=== PATIENT | female | born 1940 | race Caucasian/White ===

== ENCOUNTER → 2018-05-04 | Outpatient (CLI) | payer MEDICARE, OTHER ==
[~2018-05-04] MED LIST: ACET325 PO; ALLO300 PO; ASCO500 PO; CALCAVITD PO; CEPH500 PO; CHOL10002; CLOP75 PO; FLAXSEED1000 MG PO; HYDCHL50 PO; IBUP600 PO; KRILL OIL500 MG PO; LOSA50 PO; MAGOXI400; PROBIOTIC; PROM25 PO; SPIR25 PO; TUMERIC PO; UBID100 PO; VERA180ERB PO
== END | disposition home or self-care (01) ==
LOC: LAB SHORT 19:07 → LAB 19:07
PROVIDERS: Family Medicine
DX: Z12.4 Encounter for screening for malignant neoplasm of cervix (principal)
CPT/HCPCS: G0145

== ENCOUNTER → 2019-06-19 | Outpatient (CLI) | payer MEDICARE, OTHER | END | disposition home or self-care (01) | LOC: LAB 19:28 → LAB SHORT 19:28 | PROVIDERS: Family Medicine | DX: Z12.4 Encounter for screening for malignant neoplasm of cervix (principal) | CPT/HCPCS: G0145 ==

== ENCOUNTER → 2019-10-15 | Outpatient (CLI) | payer MEDICARE, OTHER | END | disposition home or self-care (01) | LOC: LAB 13:04 → LAB SHORT 13:04 | DX: N39.0 Urinary tract infection, site not specified (principal) | CPT/HCPCS: 87077; 87086; 87186 ==

== ENCOUNTER 2019-11-20 13:29 | Emergency (ER) | payer MEDICARE, OTHER ==
[~2019-11-20] VITALS: Ht 160 cm; Wt 99.8 kg
[2019-11-20 14:57] LABS: Source, Urine Clean Catch
[2019-11-20 15:01] LABS: Bilirubin, Urine Neg (Neg); Blood, Urine Neg (Neg); Glucose Qualitative, Urine Neg (Neg); Ketones, Urine Neg (Neg); Leukocyte Esterase, Urine 3+ (Neg); Nitrite, Urine Pos (Neg); Protein, Urine Neg (Neg); Urobilinogen, Urine NORM (Normal)
[2019-11-20 15:18] LABS: Appearance, Urine Hazy (Clear); Bacteria Many /hpf; Color, Urine Yellow (P-Yellow); Red Blood Cells, Urine Not Seen /hpf (0-2); Squamous Epithelial Cells Few /hpf (Few)
[2019-11-20 15:34] LABS: BASOPHILS ABSOLUTE AUTO 0.06 K/mm3 (0.00-0.23); BASOPHILS PERCENT AUTO 1 % (0-2); EOSINOPHILS ABSOLUTE AUTO 0.16 K/mm3 (0.00-0.68); EOSINOPHILS PERCENT AUTO 1 % (0-6); Hematocrit 47.3 % (33.0-51.0); Hemoglobin 16.1 g/dL (11.5-16.0); IMMATURE GRAN ABSOLUTE AUTO 0.05 K/mm3 (0.00-0.10); IMMATURE GRAN PERCENT AUTO 0 % (0-1); LYMPHOCYTES ABSOLUTE AUTO 1.22 K/mm3 (0.84-5.20); LYMPHOCYTES PERCENT AUTO 11 % (21-46); MONOCYTES ABSOLUTE AUTO 0.97 K/mm3 (0.16-1.47); MONOCYTES PERCENT AUTO 8 % (4-13); Mean Corpuscular HGB 31.6 pg (26.0-34.0); Mean Corpuscular Volume 93 fL (80-100); Mean Platelet Volume 10.7 fL (9.1-12.4); NEUTROPHILS ABSOLUTE AUTO 9.04 K/mm3 (1.96-9.15); NEUTROPHILS PERCENT AUTO 79 % (41-73); Platelet Count 176 K/mm3 (150-400); RDW Coefficient Variation 13.3 % (11.7-14.2); RDW Standard Deviation 46.1 fL (35.1-46.3); Red Blood Cell Count 5.09 M/mm3 (3.80-5.20)
[2019-11-20 15:54] LABS: Alanine Aminotransfer (ALT/SGP 42 U/L (12-78); Albumin, Blood 3.5 g/dL (3.4-5.0); Albumin/Globulin Ratio 1.1 (0.8-1.8); Alk Phos 112 U/L (50-136); Anion Gap 8 mmol/L (6-16); Aspartate Aminotrans (AST/SGOT 43 U/L (12-37); Bilirubin, Total 1.3 mg/dL (0.1-1.0); Blood Urea Nitrogen 17 mg/dL (8-24); Bun/Creatinine Ratio 25.2 (12.0-20.0); CO2, Blood 26 mmol/L (21-32); Calcium, Blood 9.3 mg/dL (8.5-10.1); Chloride, Blood 105 mmol/L (98-108); Creatinine, Blood 0.68 mg/dL (0.40-1.00); Globulin, Blood 3.1 g/dL (2.2-4.0); Glomerular Filtration Rate >60 (60-); Glucose, Blood 97 mg/dL (70-99); Potassium, Blood 4.1 mmol/L (3.5-5.5); Sodium, Blood 139 mmol/L (136-145); Total Protein, Blood 6.6 g/dL (6.4-8.2)
[2019-11-20] MEDS ORDERED: CEPH500 PO (16:01)
== END 2019-11-20 17:08 | disposition home or self-care (01) ==
LOC: ER 13:29
PROVIDERS: Physician Assistant
DX: N39.0 Urinary tract infection, site not specified (principal); R11.0 Nausea; Z88.5 Allergy status to narcotic agent; Z79.899 Other long term (current) drug therapy
CPT/HCPCS: 36415; 74176; 80053; 81001; 83690; 85025; 87077; 87086; 87186; 96365; 96375; 99284-25; J0696; J1885

== ENCOUNTER 2020-02-02 12:06 | Emergency (ER) | payer MEDICARE, OTHER ==
[~2020-02-02] VITALS: Ht 182.9 cm; Wt 113.4 kg
[2020-02-02 12:47] LABS: BASOPHILS ABSOLUTE AUTO 0.06 K/mm3 (0.00-0.23); BASOPHILS PERCENT AUTO 1 % (0-2); EOSINOPHILS ABSOLUTE AUTO 0.25 K/mm3 (0.00-0.68); EOSINOPHILS PERCENT AUTO 3 % (0-6); Hematocrit 44.8 % (33.0-51.0); Hemoglobin 14.9 g/dL (11.5-16.0); IMMATURE GRAN ABSOLUTE AUTO 0.07 K/mm3 (0.00-0.10); IMMATURE GRAN PERCENT AUTO 1 % (0-1); LYMPHOCYTES ABSOLUTE AUTO 1.26 K/mm3 (0.84-5.20); LYMPHOCYTES PERCENT AUTO 13 % (21-46); MONOCYTES ABSOLUTE AUTO 0.81 K/mm3 (0.16-1.47); MONOCYTES PERCENT AUTO 9 % (4-13); Mean Corpuscular HGB 31.3 pg (26.0-34.0); Mean Corpuscular HGB Conc 33.3 g/dL (31.5-36.5); Mean Corpuscular Volume 94 fL (80-100); Mean Platelet Volume 10.8 fL (9.1-12.4); NEUTROPHILS ABSOLUTE AUTO 6.99 K/mm3 (1.96-9.15); NEUTROPHILS PERCENT AUTO 74 % (41-73); Platelet Count 145 K/mm3 (150-400); RDW Coefficient Variation 13.2 % (11.7-14.2); RDW Standard Deviation 45.8 fL (35.1-46.3); Red Blood Cell Count 4.76 M/mm3 (3.80-5.20); White Blood Cell Count 9.44 K/mm3 (4.00-11.30)
[2020-02-02 13:12] LABS: International Normalized Ratio 1.12; Prothrombin Time Results 11.9 Sec (9.7-11.5)
[2020-02-02 13:14] LABS: Alanine Aminotransfer (ALT/SGP 29 U/L (12-78); Albumin, Blood 3.4 g/dL (3.4-5.0); Albumin/Globulin Ratio 1.1 (0.8-1.8); Alk Phos 159 U/L (50-136); Anion Gap 5 mmol/L (6-16); Aspartate Aminotrans (AST/SGOT 36 U/L (12-37); Bilirubin, Total 0.8 mg/dL (0.1-1.0); Blood Urea Nitrogen 24 mg/dL (8-24); Bun/Creatinine Ratio 33.4 (12.0-20.0); CO2, Blood 26 mmol/L (21-32); Calcium, Blood 8.7 mg/dL (8.5-10.1); Chloride, Blood 109 mmol/L (98-108); Creatinine, Blood 0.72 mg/dL (0.40-1.00); Globulin, Blood 3.1 g/dL (2.2-4.0); Glomerular Filtration Rate >60 (60-); Glucose, Blood 143 mg/dL (70-99); Potassium, Blood 4.3 mmol/L (3.5-5.5); Sodium, Blood 140 mmol/L (136-145); Total Protein, Blood 6.5 g/dL (6.4-8.2)
[2020-02-02] MEDS ORDERED: SPIR25 PO (16:57)
[2020-02-02] MEDS ORDERED: CLOP75 PO (16:57)
[2020-02-02] MEDS ORDERED: VERA180ERB PO (16:58)
[2020-02-02] MEDS ORDERED: LOSA50 PO (16:58)
[2020-02-02] MEDS ORDERED: SERT50 PO (16:58)
[2020-02-02] MEDS ORDERED: MELATONIN5 M1 PO (16:59)
== END 2020-02-02 13:23 | disposition short-term general hospital (02) ==
LOC: ER 12:06
PROVIDERS: Emergency Medicine
DX: S06.5X9A Traumatic subdural hemorrhage with loss of consciousness of unspecified duration, initial encounter (principal); S00.11XA Contusion of right eyelid and periocular area, initial encounter; Z88.5 Allergy status to narcotic agent; Z79.899 Other long term (current) drug therapy; Z79.2 Long term (current) use of antibiotics; I10 Essential (primary) hypertension; G47.30 Sleep apnea, unspecified; Z86.73 Personal history of transient ischemic attack (TIA), and cerebral infarction without residual deficits; Z85.3 Personal history of malignant neoplasm of breast; Z88.8 Allergy status to other drugs, medicaments and biological substances; W18.30XA Fall on same level, unspecified, initial encounter
CPT/HCPCS: 31500; 51702; 70450; 71045; 72125; 80053; 85025; 85610; 93005; 93010; 94002; 96360-59; 99291-25; J0330; J2704; J7030

== ENCOUNTER → 2020-07-12 | Outpatient (CLI) | payer MEDICARE, OTHER ==
[~2020-07-12] MED LIST changes: +MELATONIN5 M1 PO; +SERT50 PO
== END | disposition home or self-care (01) ==
LOC: LAB EV 14:17 → LAB SHORT 14:17
DX: N39.0 Urinary tract infection, site not specified (principal)
CPT/HCPCS: 87077; 87086; 87186

== ENCOUNTER → 2020-09-26 | Outpatient (CLI) | payer MEDICARE, OTHER | END | disposition home or self-care (01) | LOC: LAB SHORT 16:39 → PLD 16:39 | DX: R30.9 Painful micturition, unspecified (principal) | CPT/HCPCS: 87077; 87086; 87186 ==

== ENCOUNTER → 2021-09-22 | Outpatient (CLI) | payer MEDICARE, OTHER ==
[~2021-09-22] MED LIST changes: +AMLODIPINE BESY10 MG PO; +ATOR40TA; +Potassium Chlo20 ME1; +TORS10; +Tambocor100 MG; +ZOLOFT50 MG; +ZONI100
[2021-09-22 19:33] LABS: BASOPHILS ABSOLUTE AUTO 0.05 K/mm3 (0.00-0.23); BASOPHILS PERCENT AUTO 1 % (0-2); EOSINOPHILS ABSOLUTE AUTO 0.19 K/mm3 (0.00-0.68); EOSINOPHILS PERCENT AUTO 2 % (0-6); Hemoglobin 14.8 g/dL (11.5-16.0); IMMATURE GRAN ABSOLUTE AUTO 0.02 K/mm3 (0.00-0.10); IMMATURE GRAN PERCENT AUTO 0 % (0-1); LYMPHOCYTES ABSOLUTE AUTO 1.41 K/mm3 (0.84-5.20); LYMPHOCYTES PERCENT AUTO 18 % (21-46); MONOCYTES ABSOLUTE AUTO 0.87 K/mm3 (0.16-1.47); MONOCYTES PERCENT AUTO 11 % (4-13); Mean Corpuscular HGB 30.5 pg (26.0-34.0); Mean Corpuscular HGB Conc 34.4 g/dL (31.5-36.5); Mean Corpuscular Volume 89 fL (80-100); Mean Platelet Volume 11.4 fL (9.1-12.4); NEUTROPHILS ABSOLUTE AUTO 5.37 K/mm3 (1.96-9.15); NEUTROPHILS PERCENT AUTO 68 % (41-73); Platelet Count 180 K/mm3 (150-400); RDW Coefficient Variation 12.9 % (11.7-14.2); RDW Standard Deviation 42.2 fL (35.1-46.3); Red Blood Cell Count 4.86 M/mm3 (3.80-5.20); White Blood Cell Count 7.91 K/mm3 (4.00-11.30)
[2021-09-23 21:41] LABS: Albumin/Globulin Ratio 1.4 (0.8-1.8); Bilirubin, Total 0.9 mg/dL (0.1-1.0); Bun/Creatinine Ratio 20.7 (12.0-20.0); Calcium, Blood 9.4 mg/dL (8.5-10.1); Creatinine, Blood 0.92 mg/dL (0.40-1.00); Globulin, Blood 2.9 g/dL (2.2-4.0); Potassium, Blood 3.4 mmol/L (3.5-5.5); Total Protein, Blood 6.9 g/dL (6.4-8.2)
== END | disposition home or self-care (01) ==
LOC: LAB SHORT 18:53 → LAB 18:53
PROVIDERS: Family Medicine
DX: I10 Essential (primary) hypertension (principal); D72.829 Elevated white blood cell count, unspecified; R73.9 Hyperglycemia, unspecified
CPT/HCPCS: 80053; 83036; 85025

== ENCOUNTER → 2022-01-22 | Outpatient (CLI) | payer MEDICARE, OTHER | END | disposition home or self-care (01) | LOC: LAB SHORT 11:43 → LAB 11:43 | DX: N39.0 Urinary tract infection, site not specified (principal) | CPT/HCPCS: 87077; 87086; 87186 ==

== ENCOUNTER → 2022-03-10 | Outpatient (CLI) | payer MEDICARE, OTHER | END | disposition home or self-care (01) | LOC: LAB 16:27 → LAB SHORT 16:27 | DX: N39.0 Urinary tract infection, site not specified (principal) | CPT/HCPCS: 87077; 87086; 87186 ==

== ENCOUNTER → 2022-04-27 | Outpatient (CLI) | payer MEDICARE, OTHER | LOC: LAB SHORT 16:20 | DX: N39.0 Urinary tract infection, site not specified (principal) ==

== ENCOUNTER → 2022-06-16 | Outpatient (CLI) | payer MEDICARE, OTHER ==
[2022-06-17 06:56] LABS: Candida species (DNA Probe) Negative (NEGATIVE); G. vaginalis (DNA Probe) Negative (NEGATIVE); T. vaginalis (DNA Probe) Negative (NEGATIVE)
== END | disposition home or self-care (01) ==
LOC: LAB 15:31 → LAB SHORT 15:31
PROVIDERS: Obstetrics & Gynecology
DX: N76.0 Acute vaginitis (principal)
CPT/HCPCS: 87480; 87510; 87660

== ENCOUNTER 2023-01-01 10:51 | Inpatient (IN) | payer MEDICARE, OTHER ==
[~2023-01-01] VITALS: Ht 160 cm; Wt 86.8 kg
[~2023-01-01 10:51] MED LIST changes: -AMLODIPINE BESY10 MG PO; +AMOCLA875 PO; -ATOR40TA; +ATOR40TA PO; +Amlodipine Bes2.5 MG PO; +OXYB5 PO; +SERT100 PO; -TORS10; +TORS10 PO; -Tambocor100 MG; +Tambocor100 MG PO; -ZONI100; +Zonegran100 MG PO
[2023-01-01 11:44] LABS: BASOPHILS ABSOLUTE AUTO 0.08 K/mm3 (0.00-0.23); BASOPHILS PERCENT AUTO 1 % (0-2); EOSINOPHILS ABSOLUTE AUTO 0.04 K/mm3 (0.00-0.68); EOSINOPHILS PERCENT AUTO 0 % (0-6); Hematocrit 41.3 % (33.0-51.0); Hemoglobin 13.9 g/dL (11.5-16.0); IMMATURE GRAN ABSOLUTE AUTO 0.18 K/mm3 (0.00-0.10); IMMATURE GRAN PERCENT AUTO 2 % (0-1); LYMPHOCYTES ABSOLUTE AUTO 1.12 K/mm3 (0.84-5.20); LYMPHOCYTES PERCENT AUTO 10 % (21-46); MONOCYTES ABSOLUTE AUTO 1.14 K/mm3 (0.16-1.47); MONOCYTES PERCENT AUTO 10 % (4-13); Mean Corpuscular HGB 29.2 pg (26.0-34.0); Mean Corpuscular HGB Conc 33.7 g/dL (31.5-36.5); Mean Corpuscular Volume 87 fL (80-100); NEUTROPHILS ABSOLUTE AUTO 8.79 K/mm3 (1.96-9.15); NEUTROPHILS PERCENT AUTO 77 % (41-73); Platelet Count 389 K/mm3 (150-400); RDW Coefficient Variation 13.2 % (11.7-14.2); RDW Standard Deviation 41.6 fL (35.1-46.3); Red Blood Cell Count 4.76 M/mm3 (3.80-5.20); White Blood Cell Count 11.35 K/mm3 (4.00-11.30)
[2023-01-01 11:56] LABS: Albumin, Blood 2.8 g/dL (3.4-5.0); Albumin/Globulin Ratio 0.6 (0.8-1.8); Bilirubin, Total 0.6 mg/dL (0.1-1.0); Bun/Creatinine Ratio 11.2 (12.0-20.0); Calcium, Blood 9.4 mg/dL (8.5-10.1); Creatinine, Blood 0.81 mg/dL (0.40-1.00); Globulin, Blood 4.4 g/dL (2.2-4.0); Potassium, Blood 3.3 mmol/L (3.5-5.5); Total Protein, Blood 7.2 g/dL (6.4-8.2)
[2023-01-01 11:58] LABS: Source, Urine Straight Cath
[2023-01-01 12:04] LABS: Appearance, Urine Clear (Clear); Bilirubin, Urine Neg (Neg); Blood, Urine Neg (Neg); Glucose Qualitative, Urine Neg (Neg); Ketones, Urine Neg (Neg); Leukocyte Esterase, Urine Neg (Neg); Nitrite, Urine Neg (Neg); Protein, Urine Neg (Neg); Specific Gravity, Urine 1.015 (1.003-1.022); Urobilinogen, Urine NORM (Normal)
[2023-01-01 12:08] LABS: Color, Urine Pale Yellow (P-Yellow)
[2023-01-01] MEDS ORDERED: TORS10 PO (18:57)
[2023-01-01] MEDS ORDERED: ZONI100 PO (18:58)
[2023-01-01 19:24] VITALS: BP 139/75
[2023-01-02 05:14] VITALS: BP 146/86
--- NOTE | 2023-01-02 05:32 | NUR ---
SHIFT SUMMARY A/O 2-3, FORGETFUL, GENERALIZED WEAKNESS. INCONT, ATTENDS AND PUREWICK IN PLACE. SPO2 >92% ON RA. DENIES CHEST PAIN/PRESSURE. VSS, NO ACUTE CHANGES AT THIS TIME. BED IN LOWEST POSITION WITH CALL LIGHT IN REACH. WILL CONTINUE TO MONITOR AND REPORT TO ONCOMING RN.
[2023-01-02 05:52] LABS: Hematocrit 37.7 % (33.0-51.0); Hemoglobin 12.4 g/dL (11.5-16.0); Mean Corpuscular HGB 29.4 pg (26.0-34.0); Mean Corpuscular HGB Conc 32.9 g/dL (31.5-36.5); Mean Corpuscular Volume 89 fL (80-100); Mean Platelet Volume 9.9 fL (9.1-12.4); Platelet Count 308 K/mm3 (150-400); RDW Coefficient Variation 13.7 % (11.7-14.2); RDW Standard Deviation 44.3 fL (35.1-46.3); Red Blood Cell Count 4.22 M/mm3 (3.80-5.20); White Blood Cell Count 8.13 K/mm3 (4.00-11.30)
[2023-01-02 06:18] LABS: Bun/Creatinine Ratio 13.3 (12.0-20.0); Calcium, Blood 8.9 mg/dL (8.5-10.1); Creatinine, Blood 0.75 mg/dL (0.40-1.00); Potassium, Blood 3.2 mmol/L (3.5-5.5)
[2023-01-02 07:23] VITALS: BP 131/102
--- NOTE | 2023-01-02 16:56 | NUR ---
AM ASSESSMENT I AGREE WITH THE STUDENT RN SONAM'S ASSESSMENT AND DOCUMENTATION ON THIS PT TODAY
--- NOTE | 2023-01-02 17:43 | NUR ---
LALA IS A&O X4 TODAY WITH ONLY MINOR CONFUSION/ FORGETFULNESS. SHE IS PLEASANT AND COOPERATIVE WITH CARE. PT HAS A PURWICK IN PLACE BUT IS INTERMITTENTLY CONTINENT, SHE HAS SOME REDNESS AND EXCORIATION IN HER GENARO AREA. SHE BEGAN COMPLAINING OF ELBOW PAIN DURING THIS SHIFT SHE STATES "FROM THE FALL BEFORE I CAME IN" HER FAMILY WANTS TO SPEAK TO CARE MANAGEMENT ABOUT CONCERNS OF THE PATIENT GOING HOME WITHOUT CARE.
[2023-01-02 20:14] VITALS: BP 111/80
[2023-01-03 04:34] VITALS: BP 137/73
[2023-01-03 07:50] VITALS: BP 136/83
[2023-01-03 15:51] VITALS: BP 141/84
--- NOTE | 2023-01-03 19:41 | NUR ---
PT CONTINUES TO BE SOME CONFUSED. MENDEL IF DETAILS. DAUGHTER KAMI CALLED. DISCUSSED DR PLAN THAT BELIEVES INCREASED CONFUSION MAY BE RELATED TO POSSIBLE CHANGE IN MEDICATIONS. DR IS HOLDING TO SEE IF SHE IMPROVES/ PLAN FOR D/C NOT FINALIZED YET. POSSIBLE MAY NEED FURTHER HELP . 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 STATES ONLY IN FOR 1 HR PER DAY. ALSO COMES IN FOR 4 HRS ONCE A WEEK. NO OTHER CONCERNS NOTED. BED IN LOW POSITION, CALL LITE IN REACH, CALLS APPROP
[2023-01-04 06:04] VITALS: BP 138/74
[2023-01-04 07:29] VITALS: BP 139/73
--- NOTE | 2023-01-04 13:45 | NUR ---
PT DAUGHTER CALLED VERBALIZED FEAR OF PT BEING TRANSFERED TO [facility]
[2023-01-04 15:36] VITALS: BP 145/79
--- NOTE | 2023-01-04 15:44 | NUR ---
Pt. is sitting up in a recliner and welcomes my visit. Pt. is pleasant but displays evidence of occasional confusion. Listen with empathy and a a calming presence. Pt. is unsettled about going to a SNF. I normalized hte Pt. experience and encouraged the Pt. to focus on her recovery. Pt. displayed evidence of agreement and understanding. Facilitated a life review and prayed with Pt. Pt. verbalized gratitude for the spiritual care visit.
[2023-01-04 19:51] VITALS: BP 112/68
--- NOTE | 2023-01-05 04:22 | NUR ---
SHIFT SUMMARY PATIENT HAD NO ACUTE CHANGES. AXOX 3 W/CONFUSION. ONE ASSIST TO BR WITH FWW. CAREGIVER PRESENT AT SHIFT CHANGE. PATIENT REPORTS CAREGIVER ALSO CLEANS HER HOUSE AND PATIENT HAS FOOD DELIVERED TO HER HOUSE. PIV REMAINS INTACT. VSS/AFEBRILE. DENIES CHEST PAIN, SOB, AND N/V. COOPERATIVE WITH CARE. CALL LIGHT IN REACH. BED IN LOWEST POSITION. WILL CONTINUE TO MONITOR UNTIL DAY SHIFT NURSE ASSUMES CARE.
[2023-01-05 05:40] VITALS: BP 116/70
[2023-01-05 05:49] LABS: Bun/Creatinine Ratio 20.4 (12.0-20.0); Calcium, Blood 8.3 mg/dL (8.5-10.1); Creatinine, Blood 0.74 mg/dL (0.40-1.00); Potassium, Blood 4.1 mmol/L (3.5-5.5)
[2023-01-05 07:37] VITALS: BP 149/82
[2023-01-05] MEDS ORDERED: POTCHL20ER PO (13:42)
[2023-01-05] MEDS ORDERED: SERT50 PO (13:42)
[2023-01-05 14:42] VITALS: BP 119/71
--- NOTE | 2023-01-05 18:18 | NUR ---
SHIFT SUMMARY-PT IS A/O ,PLESANT AND COOPERATIVE. SHE IS EATING AND DRINKING WELL. PLANNING ON DISCHARGE TO [facility] TOMORROW. SHE SLEPT INTERMITENTLY THIS SHIFT. HER BED IS IN THE LOW POSITION AND CALL LIGHT IS WITHIN REACH.
[2023-01-05 20:38] VITALS: BP 119/71
--- NOTE | 2023-01-06 00:39 | NUR ---
SHIFT SUMMARY NOC PT A/O X 3. PLEASANTLY CONFUSED AND FORGETFUL AT TIMES. NO ACUTE CHANGES TO REPORT. PT IS DISCHARGING 01/06/[address] [facility]. PT IS CURRENTLY RESTING WITH BED ALARM ON, BED IN LOWEST POSITION, AND CALL LIGHT WITHIN REACH.
[2023-01-06 04:53] VITALS: BP 138/78
[2023-01-06 07:12] VITALS: BP 140/81
[2023-01-06 09:33] LABS: SARS-Cov-2 (COVID-19) PCR, MMC NEGATIVE (NEGATIVE)
--- NOTE | 2023-01-06 14:17 | NUR ---
PT DISCHARGED FROM THE UNIT. IV REMOVED. REPORT CALLED TO LADARIUS LOPEZ
== END 2023-01-06 13:00 | DRG 93 ==
LOC: ER 10:51 → MEDS 10:52 → ENPENDDIS 01-05 09:10 → MEDS 01-05 23:23
PROVIDERS: Emergency Medicine; Internal Medicine; Nurse Practitioner Acute Care; ADMIT Internal Medicine
DX: G92.8 Other toxic encephalopathy (principal); G47.33 Obstructive sleep apnea (adult) (pediatric); F32.A Depression, unspecified; E78.5 Hyperlipidemia, unspecified; G40.909 Epilepsy, unspecified, not intractable, without status epilepticus; I12.9 Hypertensive chronic kidney disease with stage 1 through stage 4 chronic kidney disease, or unspecified chronic kidney disease; Z66 Do not resuscitate; N18.30 Chronic kidney disease, stage 3 unspecified; R32 Unspecified urinary incontinence; F01.50 Vascular dementia, unspecified severity, without behavioral disturbance, psychotic disturbance, mood disturbance, and anxiety; T46.2X5A Adverse effect of other antidysrhythmic drugs, initial encounter; Z20.822 Contact with and (suspected) exposure to COVID-19; K46.9 Unspecified abdominal hernia without obstruction or gangrene; K58.9 Irritable bowel syndrome, unspecified; M79.7 Fibromyalgia; R39.15 Urgency of urination; R94.31 Abnormal electrocardiogram [ECG] [EKG]; E86.0 Dehydration; E87.6 Hypokalemia; I95.9 Hypotension, unspecified; Z96.659 Presence of unspecified artificial knee joint; Z88.8 Allergy status to other drugs, medicaments and biological substances; Z87.19 Personal history of other diseases of the digestive system; Z86.79 Personal history of other diseases of the circulatory system; Z86.69 Personal history of other diseases of the nervous system and sense organs; Z85.3 Personal history of malignant neoplasm of breast; Z98.890 Other specified postprocedural states; Z88.5 Allergy status to narcotic agent; Z79.02 Long term (current) use of antithrombotics/antiplatelets; Z79.899 Other long term (current) drug therapy; Z86.73 Personal history of transient ischemic attack (TIA), and cerebral infarction without residual deficits
CPT/HCPCS: 36415; 70450; 71045; 73080; 80048; 80053; 81003; 85025; 85027; 93005; 93010; 96360; 96361; 96372; 96374; 97110; 97110-CQ; 97116-CQ; 97162; 97530; 99285-25; A9270; G0378; J1650; J3480; J7030; J7050; P9612; U0002

== ENCOUNTER → 2023-04-20 | Outpatient (CLI) | payer MEDICARE, OTHER ==
[~2023-04-20] MED LIST changes: +POTCHL20ER PO; +ZONI100 PO
[2023-04-20 13:27] LABS: BASOPHILS ABSOLUTE AUTO 0.13 K/mm3 (0.00-0.23); BASOPHILS PERCENT AUTO 1 % (0-2); EOSINOPHILS ABSOLUTE AUTO 1.16 K/mm3 (0.00-0.68); EOSINOPHILS PERCENT AUTO 8 % (0-6); Hematocrit 34.4 % (33.0-51.0); Hemoglobin 11.6 g/dL (11.5-16.0); IMMATURE GRAN ABSOLUTE AUTO 0.06 K/mm3 (0.00-0.10); IMMATURE GRAN PERCENT AUTO 0 % (0-1); LYMPHOCYTES ABSOLUTE AUTO 1.34 K/mm3 (0.84-5.20); LYMPHOCYTES PERCENT AUTO 10 % (21-46); MONOCYTES ABSOLUTE AUTO 1.28 K/mm3 (0.16-1.47); MONOCYTES PERCENT AUTO 9 % (4-13); Mean Corpuscular HGB 26.9 pg (26.0-34.0); Mean Corpuscular HGB Conc 33.7 g/dL (31.5-36.5); Mean Corpuscular Volume 80 fL (80-100); Mean Platelet Volume 11.6 fL (9.1-12.4); NEUTROPHILS ABSOLUTE AUTO 10.14 K/mm3 (1.96-9.15); NEUTROPHILS PERCENT AUTO 72 % (41-73); Platelet Count 221 K/mm3 (150-400); RDW Coefficient Variation 14.7 % (11.7-14.2); RDW Standard Deviation 42.5 fL (35.1-46.3); Red Blood Cell Count 4.32 M/mm3 (3.80-5.20); White Blood Cell Count 14.11 K/mm3 (4.00-11.30)
== END ==
LOC: LAB 13:15 → LAB SHORT 13:15
PROVIDERS: Physician Assistant
DX: N39.0 Urinary tract infection, site not specified (principal)
CPT/HCPCS: 83605; 85025; 87086

== ENCOUNTER 2023-05-02 10:41 | Emergency (ER) | payer MEDICARE, OTHER ==
[~2023-05-02] VITALS: Ht 160 cm; Wt 68.0 kg
[2023-05-02 11:14] LABS: BASOPHILS ABSOLUTE AUTO 0.16 K/mm3 (0.00-0.23); BASOPHILS PERCENT AUTO 1 % (0-2); EOSINOPHILS ABSOLUTE AUTO 1.24 K/mm3 (0.00-0.68); EOSINOPHILS PERCENT AUTO 7 % (0-6); Hematocrit 32.3 % (33.0-51.0); Hemoglobin 10.5 g/dL (11.5-16.0); IMMATURE GRAN ABSOLUTE AUTO 0.14 K/mm3 (0.00-0.10); IMMATURE GRAN PERCENT AUTO 1 % (0-1); LYMPHOCYTES ABSOLUTE AUTO 0.98 K/mm3 (0.84-5.20); LYMPHOCYTES PERCENT AUTO 5 % (21-46); MONOCYTES ABSOLUTE AUTO 1.93 K/mm3 (0.16-1.47); MONOCYTES PERCENT AUTO 11 % (4-13); Mean Corpuscular HGB 25.9 pg (26.0-34.0); Mean Corpuscular HGB Conc 32.5 g/dL (31.5-36.5); Mean Corpuscular Volume 80 fL (80-100); Mean Platelet Volume 11.6 fL (9.1-12.4); NEUTROPHILS ABSOLUTE AUTO 13.64 K/mm3 (1.96-9.15); NEUTROPHILS PERCENT AUTO 75 % (41-73); Platelet Count 131 K/mm3 (150-400); RDW Coefficient Variation 15.3 % (11.7-14.2); Red Blood Cell Count 4.06 M/mm3 (3.80-5.20); White Blood Cell Count 18.09 K/mm3 (4.00-11.30)
[2023-05-02 11:22] LABS: Source, Urine Straight Cath
[2023-05-02 11:28] LABS: Appearance, Urine Clear (Clear); Bilirubin, Urine Neg (Neg); Blood, Urine 2+ (Neg); Color, Urine Amber (P-Yellow); Glucose Qualitative, Urine Neg (Neg); Ketones, Urine Neg (Neg); Leukocyte Esterase, Urine Neg (Neg); Nitrite, Urine Neg (Neg); Protein, Urine 1+ (Neg); Specific Gravity, Urine 1.015 (1.003-1.022); Urobilinogen, Urine NORM (Normal); pH, Urine 6.5 (5.0-8.0)
[2023-05-02 11:36] LABS: Amorphous Light (0-Heavy); Bacteria Few /hpf; Mucus Light (0-Heavy); Squamous Epithelial Cells Not Seen /hpf (Few); Transitional Epithelial Cells Rare /hpf (0-Rare); White Blood Cells, Urine 0-2 /hpf (0-5)
[2023-05-02 11:43] LABS: Magnesium, Blood 1.9 mg/dL (1.6-2.4); Thyroid Stimulating Hormone 2.75 uIU/mL (0.360-4.800)
[2023-05-02 11:44] LABS: Albumin, Blood 2.4 g/dL (3.4-5.0); Albumin/Globulin Ratio 0.8 (0.8-1.8); Bilirubin, Total 1.4 mg/dL (0.1-1.0); Bun/Creatinine Ratio 17.2 (12.0-20.0); Creatinine, Blood 0.7 mg/dL (0.40-1.00); Globulin, Blood 3.2 g/dL (2.2-4.0); Potassium, Blood 3.1 mmol/L (3.5-5.5); Total Protein, Blood 5.6 g/dL (6.4-8.2)
[2023-05-02 14:45] VITALS: BP 163/93
== END 2023-05-02 15:02 | disposition home or self-care (01) ==
LOC: ER 10:41
PROVIDERS: Student in an Organized Health Care Education/Training Program
DX: R41.0 Disorientation, unspecified (principal); C78.7 Secondary malignant neoplasm of liver and intrahepatic bile duct; D72.829 Elevated white blood cell count, unspecified; E87.6 Hypokalemia; Z88.5 Allergy status to narcotic agent; Z79.899 Other long term (current) drug therapy; Z86.73 Personal history of transient ischemic attack (TIA), and cerebral infarction without residual deficits; E78.5 Hyperlipidemia, unspecified; G47.30 Sleep apnea, unspecified; I12.9 Hypertensive chronic kidney disease with stage 1 through stage 4 chronic kidney disease, or unspecified chronic kidney disease; N18.9 Chronic kidney disease, unspecified
CPT/HCPCS: 51701; 70450; 71046; 74177; 80053; 81001; 83690; 83735; 84443; 85025; 93005; 93010; 96365; 96375; 99285-25; A9270; J2405; J3480; J7030; Q9967

== ENCOUNTER → 2023-05-04 | Outpatient (CLI) | payer MEDICARE, OTHER ==
[2023-05-04 16:23] LABS: Source, Urine Clean Catch
[2023-05-04 19:02] LABS: Appearance, Urine Hazy (Clear); Bilirubin, Urine Neg (Neg); Blood, Urine 1+ (Neg); Color, Urine Yellow (P-Yellow); Glucose Qualitative, Urine Neg (Neg); Ketones, Urine Neg (Neg); Leukocyte Esterase, Urine 3+ (Neg); Nitrite, Urine Neg (Neg); Protein, Urine 2+ (Neg); Urobilinogen, Urine NORM (Normal)
[2023-05-04 20:05] LABS: Bacteria Many /hpf; Squamous Epithelial Cells Few /hpf (Few)
[2023-05-04 20:06] LABS: Hyaline Casts 0-2 /lpf (0-2)
== END ==
LOC: LAB 16:20 → LAB SHORT 16:20
PROVIDERS: Internal Medicine Hematology & Oncology
DX: R30.0 Dysuria (principal)
CPT/HCPCS: 81001; 87077; 87086; 87186